=== PATIENT | male | born 1990 | race Caucasian/White ===

== ENCOUNTER 2017-11-01 12:50 | Emergency (ER) | payer OTHER ==
[~2017-11-01] VITALS: Ht 175.3 cm; Wt 63.5 kg
[2017-11-01 13:27] VITALS: BP 124/46
== END 2017-11-01 13:55 | disposition home or self-care (01) ==
LOC: ER 12:50
DX: H66.91 Otitis media, unspecified, right ear (principal)

== ENCOUNTER 2018-10-23 11:44 | Emergency (ER) | payer OTHER ==
[~2018-10-23] VITALS: Ht 175.3 cm; Wt 63.5 kg
[2018-10-23 11:56] VITALS: BP 111/70
== END 2018-10-23 13:38 | disposition left against medical advice (07) ==
LOC: ER 11:44
DX: J02.9 Acute pharyngitis, unspecified (principal); Z53.21 Procedure and treatment not carried out due to patient leaving prior to being seen by health care provider

== ENCOUNTER → 2019-12-30 | Outpatient (CLI) | payer OTHER, SELFPAY | END | disposition home or self-care (01) | LOC: LAB 15:42 | PROVIDERS: ATTEND Nurse Practitioner Family | DX: J18.9 Pneumonia, unspecified organism (principal); R05 Cough; Z20.828 Contact with and (suspected) exposure to other viral communicable diseases | CPT/HCPCS: C9803; U0003 ==